=== PATIENT | female | born 1980 | race Caucasian/White ===

== ENCOUNTER → 2017-01-18 | Outpatient (CLI) | payer MEDICARE ==
--- NOTE | 2017-01-18 09:02 | CT ---
EXAMINATION TYPE: CT abdomen pelvis wo con DATE OF EXAM: 01/18/2017 8:08 AM COMPARISON: NONE HISTORY: 36-year-old female Abdominal pain, frequent urination. Calculus of kidney. CT DLP: 721 mGycm. Automated exposure control for dose reduction was used. TECHNIQUE: Contiguous axial scanning of the abdomen and pelvis without IV contrast. Coronal and sagit rocky reconstructions performed. FINDINGS: The heart is normal size without pericardial effusion. Lung bases clear without pleural effusion. Noncontrast appearance of the liver, gallbladder, adrenal glands, kidneys, spleen, and pancreas show no gross abnormality. No renal calculus or hydronephrosis. There is prominent distention of the stomach secondary to ingested debris No dilated small bowel, free fluid, or free air. Prominent fluid-filled small bowel loops are present in the mid and lower abdomen and pelvis. Some inspissated hyperdense material is noted within a norm al caliber appendix. Some liquid stool is present in the ascending colon with otherwise mild to moder ate overall stool burden. No pericolonic inflammatory change. No mesenteric or retroperitoneal lymphadenopathy. Bladder is urine distended. There may be very mild circumferential bladder wall thickening. No abnorm al fluid collection in the pelvis or pelvic lymphadenopathy. Bones: No osseous destructive process. IMPRESSION: 1. Prominent fluid-filled small bowel loops in the lower abdomen and pelvis with some liquid stool in the ascending colon. Correlate for any symptoms of enteritis. 2. There may be slight circumferential wall thickening of the bladder. Correlate to exclude cystitis, especially given patient's symptoms. No nephrolithiasis or hydronephrosis. 3. Incidental note of prominent ingested debris distending the stomach.
== END | disposition home or self-care (01) ==
LOC: RADCTMAIN 07:47
PROVIDERS: ATTEND Family Medicine
DX: R93.8 Abnormal findings on diagnostic imaging of other specified body structures (principal)
CPT/HCPCS: 74176

== ENCOUNTER 2017-01-21 15:08 | Emergency (ER) | payer MEDICARE ==
[2017-01-21 16:09] LABS: Appearance,Urine Clear (Clear); Bilirubin,Urine Negative (Negative); Glucose,Urine (UA) Negative (Negative); Ketones,Urine Negative (Negative); Leukocyte Esterase,Urine Negative (Negative); Nitrite,Urine Negative (Negative); Protein,Urine Negative (Negative); UA Billing (MACRO vs. MICRO) CHEM; Urobilinogen,Urine <2.0 mg/dL (<2.0)
--- NOTE | 2017-01-21 16:10 | ED ---
Abdominal Pain HPI - General Chief Complaint: Abdominal Pain Stated Complaint: Abd Pain Time Seen by Provider: 01/21/17 15:37 Source: patient, RN notes reviewed Mode of arrival: ambulatory Limitations: no limitations - History of Present Illness Initial Comments: Patient is a 36-year-old female presents to the emergency room for evaluation of right-sided abdominal discomfort. Patient states she began having pain about 2 and half weeks ago. Patient states she went to her primary care provider they performed ultrasound of her kidneys. Patient states they found a kidney stone. Patient states that she was continuing to have pain so she went to another provider at [facility]. Patient states that she was placed on Flomax and was ordered a CT. Patient states she was CT of her abdomen and pelvis was about 2 days ago. Patient states she has not received the results. Patient states today she was feeling very weak. Patient states she is still having right sided abdominal discomfort. Patient states it feels full. Patient denies pain or burning during urination.Patient states that having on and off diarrhea for the past few weeks. Patient states she began with diarrhea again today. Patient denies blood in the stools. Patient denies dark tarry stools. Patient states been nauseous but denies vomiting. Patient states she has a history of a hysterectomy. - Related Data Home Medications Medication Instructions Recorded Confirmed DULoxetine HCL [Cymbalta] 60 mg PO DAILY 01/21/17 01/21/17 Diazepam [Valium] 5 mg PO TID PRN 01/21/17 01/21/17 Diazepam [Valium] 10 mg PO TID PRN 01/21/17 01/21/17 Spironolactone [Aldactone] 25 mg PO DAILY 01/21/17 01/21/17 Previous Rx's Medication Instructions Recorded Dicyclomine [Bentyl] 10 mg PO TID PRN #12 capsule 01/21/17 Allergies Allergy/AdvReac Type Severity Reaction Status Date / Time codeine Allergy Unknown Verified 01/21/17 15:27 Childhood Sulfa (Sulfonamide Allergy Rash/Hives Verified 01/21/17 15:27 Antibiotics) tamsulosin [From Flomax] Allergy Dyspnea Verified 01/21/17 15:27 Review of Systems ROS Statement: Those systems with pertinent positive or pertinent negative responses have been documented in the HPI. ROS Other: All systems not noted in ROS Statement are negative. Past Medical History Past Medical History: No Reported History History of Any Multi-Drug Resistant Organisms: None Reported Past Surgical History: Hysterectomy Past Psychological History: Anxiety Smoking Status: Current every day smoker Past Alcohol Use History: Occasional Past Drug Use History: None Reported General Exam - General Exam Comments Initial Comments: sitting in exam room, no acute distress. Limitations: no limitations General appearance: alert, in no apparent distress Head exam: Present: atraumatic, normocephalic, normal inspection Eye exam: Present: normal appearance ENT exam: Present: normal exam Neck exam: Present: normal inspection Respiratory exam: Present: normal lung sounds bilaterally. Absent: respiratory distress Cardiovascular Exam: Present: regular rate, normal rhythm, normal heart sounds GI/Abdominal exam: Present: soft, tenderness (right lower quadrant), normal bowel sounds. Absent: distended, guarding, rebound, rigid Extremities exam: Present: normal inspection Back exam: Present: normal inspection Neurological exam: Present: alert, oriented X3, CN II-XII intact, normal gait Psychiatric exam: Present: normal affect, normal mood Skin exam: Present: warm, dry, intact, normal color. Absent: rash Course Vital Signs 01/21/17 01/21/17 15:11 17:08 Temperature 97.7 F 98.6 F Pulse Rate 90 74 Respiratory 18 16 Rate Blood Pressure 132/81 114/67 O2 Sat by Pulse 100 99 Oximetry Medical Decision Making - Medical Decision Making patient is a 36-year-old female since emergency room for evaluation of abdominal discomfort. CT reviewed. Prominent fluid-filled small bowel loops in the lower abdomen and pelvis was some liquid stool in the ascending colon. Correlate for symptoms of enteritis. There may be slight circumferential wall thickening of the bladder. patient denies any pain or burning during urination. Will place patient on Bentyl for abdominal discomfort. Advised patient to follow up with primary care provider for further evaluation. Patient states she understands everything that was discussed with her. Return parameters discussed. Case discussed with Dr. Lara. - Lab Data Result diagrams: 01/21/17 15:50 01/21/17 15:50 Lab Results 01/21/17 01/21/17 01/21/17 Range/Units 15:41 15:41 15:50 WBC (3.8-10.6) k/uL RBC (3.80-5.40) m/uL Hgb (11.4-16.0) gm/dL Hct (34.0-46.0) % MCV (80.0-100.0) fL MCH (25.0-35.0) pg MCHC (31.0-37.0) g/dL RDW (11.5-15.5) % Plt Count (150-450) k/uL Neutrophils % % Lymphocytes % % Monocytes % % Eosinophils % % Basophils % % Neutrophils # (1.3-7.7) k/uL Lymphocytes # (1.0-4.8) k/uL Monocytes # (0-1.0) k/uL Eosinophils # (0-0.7) k/uL Basophils # (0-0.2) k/uL Sodium 139 (137-145) mmol/L Potassium 4.2 (3.5-5.1) mmol/L Chloride 102 (98-107) mmol/L Carbon Dioxide 28 (22-30) mmol/L Anion Gap 9 mmol/L BUN 11 (7-17) mg/dL Creatinine 0.85 (0.52-1.04) mg/dL Est GFR (MDRD) Af Amer >60 (>60 ml/min/1.73 sqM) Est GFR (MDRD) Non-Af >60 (>60 ml/min/1.73 sqM) Glucose 83 (74-99) mg/dL Calcium 10.0 (8.4-10.2) mg/dL Magnesium 2.2 (1.6-2.3) mg/dL Total Bilirubin 0.5 (0.2-1.3) mg/dL AST 20 (14-36) U/L ALT 24 (9-52) U/L Alkaline Phosphatase 60 (38-126) U/L Total Protein 7.6 (6.3-8.2) g/dL Albumin 4.7 (3.5-5.0) g/dL Amylase 56 (30-110) U/L Lipase 115 (23-300) U/L Urine Color Colorless Urine Appearance Clear (Clear) Urine pH 7.0 (5.0-8.0) Ur Specific [place] <1.001 L (1.001-1.035) Urine Protein Negative (Negative) Urine Glucose (UA) Negative (Negative) Urine Ketones Negative (Negative) Urine Blood Negative (Negative) Urine Nitrite Negative (Negative) Urine Bilirubin Negative (Negative) Urine Urobilinogen <2.0 (<2.0) mg/dL Ur Leukocyte Esterase Negative (Negative) Urine HCG, Qual Not Detected (Not Detectd) 01/21/17 Range/Units 15:50 WBC 8.6 (3.8-10.6) k/uL RBC 4.76 (3.80-5.40) m/uL Hgb 14.2 (11.4-16.0) gm/dL Hct 43.6 (34.0-46.0) % MCV 91.5 (80.0-100.0) fL MCH 29.9 (25.0-35.0) pg MCHC 32.7 (31.0-37.0) g/dL RDW 12.3 (11.5-15.5) % Plt Count 309 (150-450) k/uL Neutrophils % 68 % Lymphocytes % 23 % Monocytes % 6 % Eosinophils % 1 % Basophils % 0 % Neutrophils # 5.8 (1.3-7.7) k/uL Lymphocytes # 2.0 (1.0-4.8) k/uL Monocytes # 0.5 (0-1.0) k/uL Eosinophils # 0.1 (0-0.7) k/uL Basophils # 0.0 (0-0.2) k/uL Sodium (137-145) mmol/L Potassium (3.5-5.1) mmol/L Chloride (98-107) mmol/L Carbon Dioxide (22-30) mmol/L Anion Gap mmol/L BUN (7-17) mg/dL Creatinine (0.52-1.04) mg/dL Est GFR (MDRD) Af Amer (>60 ml/min/1.73 sqM) Est GFR (MDRD) Non-Af (>60 ml/min/1.73 sqM) Glucose (74-99) mg/dL Calcium (8.4-10.2) mg/dL Magnesium (1.6-2.3) mg/dL Total Bilirubin (0.2-1.3) mg/dL AST (14-36) U/L ALT (9-52) U/L Alkaline Phosphatase (38-126) U/L Total Protein (6.3-8.2) g/dL Albumin (3.5-5.0) g/dL Amylase (30-110) U/L Lipase (23-300) U/L Urine Color Urine Appearance (Clear) Urine pH (5.0-8.0) Ur Specific [place] (1.001-1.035) Urine Protein (Negative) Urine Glucose (UA) (Negative) Urine Ketones (Negative) Urine Blood (Negative) Urine Nitrite (Negative) Urine Bilirubin (Negative) Urine Urobilinogen (<2.0) mg/dL Ur Leukocyte Esterase (Negative) Urine HCG, Qual (Not Detectd) - Radiology Data Radiology results: report reviewed, image reviewed Disposition Clinical Impression: Abdominal discomfort, Diarrhea Disposition: HOME SELF-CARE Condition: Good Instructions: Acute Diarrhea (ED) Additional Instructions: Take Bentyl as needed for pain. Please follow up with primary care provider in 1 -2 days for reevaluation. If any new symptom arises or symptoms worsen, return to ER as soon as possible. Prescriptions: Dicyclomine [Bentyl] 10 mg PO TID PRN #12 capsule PRN Reason: Pain Referrals: Willie Mccullough MD [Primary Care Provider] - 1-2 days Time of Disposition: 17:29
[2017-01-21 16:17] LABS: Specific Gravity,Urine <1.001 (1.001-1.035)
[2017-01-21 16:21] LABS: Basophils % (A) 0 %; CH 30.1; Eosinophils # (A) 0.1 k/uL (0-0.7); Eosinophils % (A) 1 %; HCT 43.6 % (34.0-46.0); HDW 2.04; HGB 14.2 gm/dL (11.4-16.0); Luc # (Auto) 0.14; Luc % (Auto) 2; Lymphocytes % (A) 23 %; MCH 29.9 pg (25.0-35.0); MCHC 32.7 g/dL (31.0-37.0); MCV 91.5 fL (80.0-100.0); Mean Platelet Volume 7.1; Monocytes # (A) 0.5 k/uL (0-1.0); Monocytes % (A) 6 %; Neutrophils # (A) 5.8 k/uL (1.3-7.7); Neutrophils % (A) 68 %; RBC 4.76 m/uL (3.80-5.40); RDW 12.3 % (11.5-15.5); WBC 8.6 k/uL (3.8-10.6); WBC (Perox) 8.48
[2017-01-21 16:40] LABS: ALT 24 U/L (9-52); AST 20 U/L (14-36); Alkaline Phosphatase 60 U/L (38-126); Amylase 56 U/L (30-110); Anion Gap 9 mmol/L; Blood Urea Nitrogen 11 mg/dL (7-17); Carbon Dioxide 28 mmol/L (22-30); Chloride 102 mmol/L (98-107); Glucose 83 mg/dL (74-99); Magnesium 2.2 mg/dL (1.6-2.3); Non-African American GFR(MDRD) >60 (>60 ml/min/1.73 sqM); Potassium 4.2 mmol/L (3.5-5.1); Sodium 139 mmol/L (137-145); Total Bilirubin 0.5 mg/dL (0.2-1.3); Total Protein 7.6 g/dL (6.3-8.2)
[2017-01-21] MEDS ORDERED: ONDANSETRON 4 MG/2 ML VIAL IVP STA (17:08)
[2017-01-21 17:09] VITALS: BP 114/67; PULSE 74; RESP 16; TEMP 98.6
[2017-01-21] MEDS ORDERED: SODIUM CHLORIDE 0.9% 1,000 ML IV ONE (17:09)
== END 2017-01-21 17:45 | disposition home or self-care (01) ==
LOC: EC 15:08
DX: R10.9 Unspecified abdominal pain (principal); R19.7 Diarrhea, unspecified; R11.0 Nausea; Z88.5 Allergy status to narcotic agent; Z88.2 Allergy status to sulfonamides; Z88.8 Allergy status to other drugs, medicaments and biological substances; F41.9 Anxiety disorder, unspecified; F17.200 Nicotine dependence, unspecified, uncomplicated; Z79.899 Other long term (current) drug therapy
CPT/HCPCS: 99284; 96374; 96361; 36415; 80053; 82150; 83690; 83735; 85025; 81003; 81025; J2405

== ENCOUNTER → 2018-03-12 | Outpatient (CLI) | payer MEDICARE ==
--- NOTE | 2018-03-12 08:11 | US ---
EXAMINATION TYPE: US abdomen comp/pelvis limited DATE OF EXAM: 03/12/2018 COMPARISON: CT 01/18/2017 CLINICAL HISTORY: 37-year-old female R10.11 Right upper quad pain. TECHNIQUE: Multiple sonographic images of the abdomen and bladder obtained. Findings EXAM MEASUREMENTS: Liver Length: 16.1 cm Gallbladder Wall: 0.2 cm CBD: 0.3 cm Spleen: 8.5 cm Right Kidney: 10.8 x 3.6 x 4.8 cm Left Kidney: 10.5 x 4.9 x 5.2 cm Pancreas: Visualized portions within normal limits, the tip of the pancreatic tail is obscured by [place] wel gas. Liver: wnl Gallbladder: wnl CBD: wnl Spleen: wnl Right Kidney: No hydronephrosis. Left Kidney: No hydronephrosis. Upper IVC: wnl Abd Aorta: wnl as visualized, distal portion obscured by bowel gas Bladder: no gross abnormality Bilateral Jets Seen Yes Incidental finding: Either a dominant follicle or functional cyst measuring 1.4 cm and the left ovary . IMPRESSION: Unremarkable sonographic examination of the abdomen. The bladder appears within normal limits. Both u reteral jets are visualized.
== END | disposition home or self-care (01) ==
LOC: RADUSWWP 06:45
PROVIDERS: ATTEND Family Medicine
DX: R10.11 Right upper quadrant pain (principal)
CPT/HCPCS: 76700; 76857

== ENCOUNTER → 2019-05-16 | Outpatient (CLI) | payer MEDICARE ==
--- NOTE | 2019-05-17 04:44 | NM ---
EXAMINATION TYPE: NM hepatobiliary w EF DATE OF EXAM: 05/16/2019 COMPARISON: Correlation ultrasound 03/12/2018 HISTORY: 38 year-old female right upper quadrant pain TECHNIQUE: After the intravenous administration of 4.4 mCi Tc 99m Mebrofenin hepatobiliary scintigrap hy is performed. Immediate images post injection. FINDINGS: There is satisfactory initial accumulation of tracer by the liver. The gallbladder is visualized wit hin 2 minutes. The small bowel activity is noted within 14 minutes. At one hour 8 ounces of oral en sure plus is given to mimic CCK and gallbladder ejection fraction is calculated at 96 %, elevated abo ve the expected range (normal = 35-80). IMPRESSION: 1. No scintigraphic evidence for acute/chronic cholecystitis or biliary dyskinesia. 2. However, the gallbladder ejection fraction is markedly elevated and may be seen in the setting of gallbladder hyperkinesis.
== END | disposition home or self-care (01) ==
LOC: RADNMMAIN 14:18
PROVIDERS: ATTEND Family Medicine
DX: R93.2 Abnormal findings on diagnostic imaging of liver and biliary tract (principal); R10.11 Right upper quadrant pain
CPT/HCPCS: 78226; A9537

== ENCOUNTER → 2020-10-12 | Outpatient (CLI) | payer MEDICARE ==
--- NOTE | 2020-10-12 13:17 | CT ---
EXAMINATION TYPE: CT abdomen pelvis wo con DATE OF EXAM: 10/12/2020 HISTORY: Renal stones CT DLP: 467.10 mGycm. Automated Exposure Control for Dose Reduction was Utilized. TECHNIQUE: CT scan of the abdomen and pelvis is performed without oral or IV contrast. COMPARISON: CT abdomen and pelvis January 18, 2017 FINDINGS: Within the limitations of a non-contrast study, the following observations are made. LUNG BASES: No significant abnormality is appreciated. LIVER/GB: No significant abnormality is appreciated. PANCREAS: No significant abnormality is seen. SPLEEN: No significant abnormality is seen. ADRENALS: No significant abnormality is seen. KIDNEYS: No renal stones or hydronephrosis seen on current study. Slight fullness to right pelvis wit hout calyceal dilatation or distal hydroureter. No intraluminal calculus in bladder. BOWEL: Suboptimal evaluation bowel without enteric contrast. Debris filled stomach suggests recent me al ingestion. Appendix is not dilated from base of cecum posterior right upper pelvis. No suspicious small or large bowel dilatation. GENITAL ORGANS: Uterus surgically absent or markedly atrophic. LYMPH NODES: No greater than 1cm abdominal or pelvic lymph nodes are appreciated. OSSEOUS STRUCTURES: No significant abnormality is seen. OTHER: No significant additional abnormality is seen. IMPRESSION: No renal stones or hydronephrosis is seen bilaterally. No suspicious new or acute finding .
== END | disposition home or self-care (01) ==
LOC: RADCTMAIN 12:36
PROVIDERS: ATTEND Family Medicine
DX: Z09 Encounter for follow-up examination after completed treatment for conditions other than malignant neoplasm (principal); Z87.442 Personal history of urinary calculi
CPT/HCPCS: 74176

== ENCOUNTER → 2021-09-23 | Outpatient (CLI) | payer MEDICARE ==
[2021-09-23 14:42] LABS: Basophils # (A) 0.1 k/uL (0-0.2); Basophils % (A) 1 %; Eosinophils # (A) 0.1 k/uL (0-0.7); Eosinophils % (A) 1 %; HCT 45.9 % (34.0-46.0); HGB 14.7 gm/dL (11.4-16.0); Lymphocytes % (A) 30 %; MCH 29.3 pg (25.0-35.0); MCHC 31.9 g/dL (31.0-37.0); MCV 91.8 fL (80.0-100.0); Mean Platelet Volume 7.6; Monocytes # (A) 0.6 k/uL (0-1.0); Monocytes % (A) 6 %; Neutrophils # (A) 6.3 k/uL (1.3-7.7); Neutrophils % (A) 62 %; Platelet Count 367 k/uL (150-450); RBC 5.01 m/uL (3.80-5.40); RDW 12.3 % (11.5-15.5); WBC 10.1 k/uL (3.8-10.6)
[2021-09-23 14:53] LABS: ALT 18 U/L (4-34); AST 22 U/L (14-36); African American GFR (CKD) >90 (>60 ml/min/1.73 sqM); Albumin 4.9 g/dL (3.5-5.0); Alkaline Phosphatase 69 U/L (38-126); Anion Gap 10 mmol/L; Blood Urea Nitrogen 10 mg/dL (7-17); Calcium 10.2 mg/dL (8.4-10.2); Carbon Dioxide 24 mmol/L (22-30); Chloride 104 mmol/L (98-107); Glucose 102 mg/dL (74-99); Non-African American GFR(CKD) >90 (>60 ml/min/1.73 sqM); Sodium 138 mmol/L (137-145); Total Bilirubin 0.6 mg/dL (0.2-1.3); Total Protein 7.6 g/dL (6.3-8.2)
[2021-09-23 16:28] LABS: Erythrocyte Sedimentation Rate 8 mm/hr (0-20)
[2021-09-24 05:06] LABS: EBV-EA (IgG) <0.2 AI; EBV-EBNA(IgG) >8.0 AI; EBV-VCA (IgG) 7.8 AI; EBV-VCA (IgM) <0.2 AI
--- NOTE | 2021-09-24 08:34 | CT ---
EXAMINATION TYPE: CT abdomen pelvis w con DATE OF EXAM: 09/23/2021 HISTORY: Pyrexia of unknown origin x2 weeks. Abdominal discomfort all over CT DLP: 895mGycm Automated Exposure Control for Dose Reduction was Utilized. CONTRAST: CT scan of the abdomen and pelvis is performed with IV Contrast, patient injected with 100 mL of Isov ue 300. COMPARISON: Prior CT October 12, 2020 FINDINGS: LUNG BASES: No significant abnormality is appreciated. LIVER/GB: Suspected prominent fold in gallbladder axial image 22 as the 2018 ultrasound did not show distinct gallstones. No surrounding fat stranding or inflammatory change noted. No biliary dilatation . PANCREAS: No significant abnormality is seen. SPLEEN: No significant abnormality is seen. ADRENALS: No significant abnormality is seen. KIDNEYS: No significant abnormality is seen. BOWEL: Oral contrast reaches the level of the right colon on current study. No suspicious small or la rge bowel dilatation is seen. Slightly redundant sigmoid colon. Normal-appearing appendix from cecum. UTERUS/ADNEXA: Uterus is surgically absent or markedly atrophic. LYMPH NODES: No greater than 1cm abdominal or pelvic lymph nodes are appreciated. OSSEOUS STRUCTURES: No significant abnormality is seen. OTHER: No significant additional abnormality is seen. IMPRESSION: No significant new or acute finding is seen to account for patient's clinical symptoms.
== END | disposition home or self-care (01) ==
LOC: RADCTMAIN 15:03
PROVIDERS: ATTEND Family Medicine
DX: R50.9 Fever, unspecified (principal)
CPT/HCPCS: 86665 ×2; 80053; 85652; 86663; 83605; 85025; 86140; 87040; 86664; 87086; 74177; 36415; Q9967

== ENCOUNTER → 2021-09-24 | Outpatient (CLI) | payer MEDICARE ==
--- NOTE | 2021-09-24 15:24 | US ---
EXAMINATION TYPE: US gallbladder DATE OF EXAM: 09/24/2021 COMPARISON: CT, US CLINICAL HISTORY: R50.9 FEVER. Low grade fever and night sweats x 2 weeks; RUQ pain; HX of renal infe ctions; patient ate peanut butter sandwich at noon today. EXAM MEASUREMENTS: Liver Length: 17.3 cm Gallbladder Wall: 0.1 cm CBD: 0.4 cm Right Kidney: 9.9 x 6.1 x 4.1 cm Pancreas: hyperechoic but homogeneous Liver: wnl Gallbladder: wnl Evidence for sonographic Min's sign: no CBD: wnl Right Kidney: No hydronephrosis or masses seen IMPRESSION: 1. Mild hepatomegaly.
== END | disposition home or self-care (01) ==
LOC: RADUSWWP 14:33
PROVIDERS: ATTEND Family Medicine
DX: R16.0 Hepatomegaly, not elsewhere classified (principal)
CPT/HCPCS: 76705

== ENCOUNTER → 2022-09-26 | Outpatient (CLI) | payer MEDICARE ==
--- NOTE | 2022-09-26 09:55 | US ---
EXAMINATION TYPE: US abdomen complete DATE OF EXAM: 09/26/2022 COMPARISON: Ultrasound gallbladder 09/24/2021 CLINICAL HISTORY: R10.10 ABD PAIN. RUQ pain TECHNIQUE: Multiple sonographic images of the abdomen are obtained. FINDINGS: EXAM MEASUREMENTS: Liver Length: 17.2 cm Gallbladder Wall: 0.3 cm CBD: 0.3 cm Spleen: 9.8 cm Right Kidney: 10.0 x 5.1 x 4.3 cm Left Kidney: 9.9 x 4.3 x 4.8 cm Pancreas: Tail obscured by overlying bowel gas Liver: wnl Gallbladder: no evidence of stones Evidence for sonographic Min's sign: no CBD: wnl Spleen: wnl Right Kidney: no evidence of hydronephrosis Left Kidney: no evidence of hydronephrosis Upper IVC: wnl Abd Aorta: wnl The liver is homogenous. Mild hepatomegaly redemonstrated. The intrahepatic portion of the IVC and pr oximal abdominal aorta are within normal limits. There is no evidence of cholelithiasis. Common caty e duct is unremarkable. The visualized portions of the pancreas are homogenous. The spleen is unrem arkable. Kidneys are symmetric and free of hydronephrosis. No renal lesions are seen. IMPRESSION: 1. No acute process. 2. Mild hepatomegaly redemonstrated.
== END | disposition home or self-care (01) ==
LOC: RADUSWWP 08:42
PROVIDERS: ATTEND Family Medicine
DX: R16.0 Hepatomegaly, not elsewhere classified (principal)
CPT/HCPCS: 76700

== ENCOUNTER → 2022-10-04 | Outpatient (CLI) | payer MEDICARE ==
--- NOTE | 2022-10-04 15:25 | NM ---
EXAMINATION TYPE: NM hepatobiliary w EF DATE OF EXAM: 10/04/2022 COMPARISON: NONE HISTORY: R10.10 UPPER ABDOMINAL PAIN, UNSPECIFIED TECHNIQUE: After the intravenous administration of 4.1 mCi Tc 99m Mebrofenin hepatobiliary scintigrap hy is performed. Immediate images post injection. FINDINGS: There is satisfactory initial accumulation of tracer by the liver. The gallbladder is visualized wit hin 15 minutes. The small bowel activity is noted within 15 minutes. At one hour 8 ounces of oral e nsure plus is given to mimic CCK and gallbladder ejection fraction is calculated at 94%. IMPRESSION: Correlate for hypercontractile state.
== END | disposition home or self-care (01) ==
LOC: RADNMMAIN 12:33
PROVIDERS: ATTEND Family Medicine
DX: R10.10 Upper abdominal pain, unspecified (principal)
CPT/HCPCS: 78226; A9537

== ENCOUNTER → 2024-07-18 | Outpatient (CLI) | payer MEDICARE ==
--- NOTE | 2024-07-18 17:18 | CA ---
Transthoracic Echo Report Name: Jasmyne Toussaint Age: 44 Gender: F : 1980 Exam Date: 07/18/2024 15:37 Exam Location: [facility] Ht (in): 63 Wt (lb): 170 Ordering Physician: Rema Rouse MD Attending/Referring Phys: Rema Rouse MD Welder Fitter Helper Darya Frye, [facility] Procedure CPT: Indications: R00.2 PALPITATIONS R01.1 CARDIAC MURMUR Cardiac Hx: Technical Quality: Good Contrast 1: Total Dose (mL): Contrast 2: Total Dose (mL): MEASUREMENTS (Male / Female) Normal Values 2D ECHO LV Diastolic Diameter PLAX 4.5 cm 4.2 - 5.9 / 3.9 - 5.3 cm LV Systolic Diameter PLAX 3.1 cm IVS Diastolic Thickness 1.1 cm 0.6 - 1.0 / 0.6 - 0.9 cm LVPW Diastolic Thickness 1.0 cm 0.6 - 1.0 / 0.6 - 0.9 cm LV Relative Wall Thickness 0.5 RV Internal Dim ED PLAX 2.9 cm LA Systolic Diameter LX 3.3 cm 3.0 - 4.0 / 2.7 - 3.8 cm LV Diastolic Volume MOD 4C 94.3 cm??? LV Systolic Volume MOD 4C 38.1 cm??? LV Ejection Fraction MOD 4C 59.6 % LV Cardiac Index MOD 4C 1885.8 cm???/min???m??? LV Diastolic Length 4C 8.8 cm LV Systolic Length 4C 7.0 cm LV Diastolic Volume MOD 2C 71.1 cm??? LV Systolic Volume MOD 2C 24.9 cm??? LV Ejection Fraction MOD 2C 65.1 % LV Cardiac Index MOD 2C 1552.6 cm???/min???m??? LV Diastolic Length 2C 8.6 cm LV Systolic Length 2C 7.1 cm M-MODE Aortic Root Diameter MM 2.9 cm LA Systolic Diameter MM 2.2 cm LA Ao Ratio MM 0.7 DOPPLER AV Peak Velocity 131.5 cm/s AV Peak Gradient 6.9 mmHg Mitral E Point Velocity 85.3 cm/s Mitral A Point Velocity 40.0 cm/s Mitral E to A Ratio 2.1 MV Deceleration Time 343.2 ms MV E' Velocity 10.5 cm/s Mitral E to MV E' Ratio 8.1 FINDINGS Left Ventricle Left ventricular ejection fraction is estimated at 60-65 %. Left ventricular cavity size normal. Mildly increased septal wall thickness. Mildly increased posterior wall thickness. Normal left ventricular wall motion. Right Ventricle Normal right ventricular size and function. Unable to estimate the right ventricular systolic pressure. Right Atrium Normal right atrial size. No right atrial thrombus or mass seen. Left Atrium Normal left atrial size. No spontaneous echo contrast seen in the left atrium. Mitral Valve Structurally normal mitral valve. No evidence for mitral valve prolapse. No mitral stenosis. Trace mitral regurgitation. Aortic Valve Trileaflet aortic valve. No aortic valve stenosis or regurgitation. Tricuspid Valve Structurally normal tricuspid valve. No tricuspid stenosis, regurgitation or prolapse. Pulmonic Valve Structurally normal pulmonic valve. No pulmonic regurgitation. Pericardium No pericardial or pleural effusion. Aorta Normal size aortic root and proximal ascending aorta. CONCLUSIONS Normal LV systolic function Previewed by: Dr. Torres Obrien MD (Electronically Signed) Final Date: 18 July 2024 17:17
== END | disposition home or self-care (01) ==
LOC: RADECHMAIN 15:23
PROVIDERS: ATTEND Family Medicine
DX: R00.2 Palpitations (principal); R01.1 Cardiac murmur, unspecified
CPT/HCPCS: 93306

== ENCOUNTER → 2024-11-22 | Outpatient (CLI) | payer MEDICARE ==
--- NOTE | 2024-11-22 13:31 | MM ---
Reason for Exam: Clinical finding. Baseline mammogram. Indicated Problems: Lump or thickening of the right side for 2 Week(s). Patient History: Menarche at age 13. Patient has no children. Hysterectomy at age 31. Last menstrual period: Risk Values: Trina 5 year model risk: 0.8%. NCI Lifetime model risk: 10.8%. Prior Study Comparison: Patient's first Mammogram. No prior studies available for comparison. Tissue Density: The breasts are extremely dense, which lowers the sensitivity of mammography. Findings: Analyzed By CAD. No evidence for mass or distortion. No suspicious microcalcifications. Ultrasound recommended for palpable abnormality. Overall Assessment: Incomplete: need additional imaging evaluation, BI-RAD 0 Management: Diagnostic Breast Ultrasound of the right breast. . Results were given to the patient verbally at the time of exam. Patient should continue monthly self-breast exams. A clinical breast exam by your physician is recommended on an annual basis. This exam should not preclude additional follow-up of suspicious palpable abnormalities. Note on Trina scores and lifetime risk: 1. A Trina score greater than 3% is considered moderate risk. If this is the case, consider specialist referral to assess eligibility for a risk reducing agent. 2. If overall lifetime risk for the development of breast cancer is 20% or higher, the patient may qualify for future screening with alternating mammogram and breast MRI. [facility], , 11/22/2024 1:28 PM. Electronically signed and approved by: David Owens M.D. Radiologis
--- NOTE | 2024-11-22 13:57 | USB ---
Reason for Exam: Clinical finding. Patient History: Menarche at age 13. Patient has no children. Hysterectomy at age 31. Risk Values: Trina 5 year model risk: 0.8%. NCI Lifetime model risk: 10.8%. Technique: Method: Targeted. Findings: The lower section of the breast of the right breast, the axilla of the right breast and the retroareolar of the right breast were scanned. No solid or cystic masses are identified. Correlate clinically with regards to palpable abnormality. Overall Assessment: Negative, BI-RAD 1 Management: Screening Mammogram of both breasts in 1 year. A clinical breast exam by your physician is recommended on an annual basis and results should be correlated with mammographic findings. This exam should not preclude additional follow-up of suspicious palpable abnormalities. Results were given to the patient verbally at the time of exam. [facility], , 11/22/2024 1:54 PM. Electronically signed and approved by: David Owens M.D. Radiologis
== END | disposition home or self-care (01) ==
LOC: RADMAMWWP 13:01
PROVIDERS: ATTEND Internal Medicine Geriatric Medicine
DX: N63.14 Unspecified lump in the right breast, lower inner quadrant (principal); R92.343 Mammographic extreme density, bilateral breasts
CPT/HCPCS: 77066; 76642; G0279; 77062

== ENCOUNTER → 2025-01-29 | Outpatient (CLI) | payer MEDICARE ==
[2025-01-29 14:23] VITALS: BP 104/68; PULSE 64; RESP 12; TEMP 98.3
--- NOTE | 2025-01-29 14:54 | P.SLEEP ---
History of Present Illness DATE: 01/29/2025 CONSULTATION/NEW PATIENT EVALUATION HISTORY OF PRESENT ILLNESS/SLEEP-WAKE EVALUATION: 44-year-old lady had been e valuated in the sleep center for possible obstructive sleep apnea hypopnea syndrome. SLEEP SCHEDULE: Usually sleep schedule from midnight until 8 AM 7 days a week. FALLING ASLEEP: No problems with falling asleep. DURING SLEEP: Patient snores and wake up from sleep once to use the restroom grinding teeth and palpitations during sleep her Fitbit showed low oxygen during sleep. Positive history of sleep talking, raising arm during the sleep. No history of hypnogogical hallucinations, sleep paralysis, or cataplexy. DURING THE DAY/WAKE STATE: In the morning patient wake up tired, has difficul ties to pay attention, has problems with concentration, irritability, depression, anxiety, claustrophobia. [place] sleepiness scale is 7. Patient takes nap around 2 PM. PAST MEDICAL HISTORY: Atrial fibrillation, acid reflux. PAST SURGICAL HISTORY: Partial hysterectomy. MEDICATIONS: Please see below. SOCIAL HISTORY: Please see below. FAMILY HISTORY: Please see below. REVIEW OF SYSTEMS: Please see below. No fevers. No double vision. No recent chest pain. No shortness of breath. No abdominal pain. No bleeding episodes. No blood in urine. No seizure episodes. PHYSICAL EXAMINATION: GENERAL: A pleasant patient without any distress. VITAL SIGNS: Please see below, weight 182.6 pounds, BMI 30.7. HEENT: PERRLA, EOMI. Evaluation of oropharynx showed tongue protrudes midline, low position of soft palate Mallampati 23. NECK: Supple. No JVD. Thyroid is not palpable. 14.5 inches in circumference. LUNGS: Clear to percussion and to auscultation. Good air exchange. No wheezing or rhonchi. HEART: S1, S2 regular. No murmurs, gallops or rubs. ABDOMEN: Soft and nontender. Bowel sounds are present. No organomegaly appreciated. EXTREMITIES: No clubbing or cyanosis. RN PROGRESSIVE CARE UNIT: Awake, alert, and oriented x3. Cranial nerves 2 to 7 intact. There is no fasciculation or atrophy noted. No focal deficits observed. ASSESSMENT: 1. Snoring, small oropharyngeal airspace, episodes of sleepiness patient takes nap. Obstructive sleep apnea hypopnea syndrome. 2. History of atrial fibrillation. 3. Acid reflux. 4. Status post partial hysterectomy. 5. Arm movements during sleep, possibly out of the movements. 6 . Positive history of sleep talking. 7. Mild obesity, BMI 30.7 PLAN: 1. Polysomnography for evaluation of patient's breathing during sleep and to check for possibility of parasomnia. 2. Following plan after reading sleep study. 3. Preferable position during sleep on the side. 4. No driving if patient feels any sleepiness. Patient is aware of civil and criminal liability for unsafe driving. 5. Sleep hygiene with regular sleep time for at least 7.5-8 hours. 6. Watching weight. Thank you very much for referring this patient for consultation. Sincerely, Pete Escobar MD, PhD, FAASM. Diplomat of [employer] [place] [employer], Sleep Medicine Board by [employer] [place] [place] [employer] Nurse Private Duty of [facility] [place] cc: Poncho Sainz MD Past Medical History Past Medical History: Atrial Fibrillation Additional Past Medical History / Comment(s): cervial radicalopothy History of Any Multi-Drug Resistant Organisms: None Reported Past Surgical History: Hysterectomy Additional Past Surgical History / Comment(s): hysterectomy Past Anesthesia/Blood Transfusion Reactions: No Reported Reaction, Motion Sickness Past Psychological History: Anxiety, Depression, PTSD Smoking Status: Current every day smoker Past Alcohol Use History: None Reported, Occasional Past Drug Use History: None Reported Medications and Allergies Home Medications Medication Instructions Recorded Confirmed Type DULoxetine HCL [Cymbalta] 60 mg PO DAILY 01/21/17 01/29/25 History diazePAM [Valium] 5 mg PO TID PRN 01/21/17 01/29/25 History Fluticasone Nasal [place] [Flonase 2 spray EA NOSTRIL DAILY 01/29/25 01/29/25 History Nasal [place]] Loratadine [Claritin] 10 mg PO DAILY 01/29/25 01/29/25 History Metoprolol Tartrate [Lopressor] 50 mg PO BID 01/29/25 01/29/25 History Olopatadine HCl [Pataday] 1 drop BOTH EYES 01/29/25 History Omeprazole 40 mg PO 01/29/25 History Allergies Allergy/AdvReac Type Severity Reaction Status Date / Time codeine Allergy Unknown Verified 01/21/17 15:27 Childhood Sulfa (Sulfonamide Allergy Rash/Hives Verified 01/21/17 15:27 Antibiotics) tamsulosin [From Flomax] Allergy Dyspnea Verified 01/21/17 15:27 Physical Exam Vitals: Vital Signs Temp Pulse Resp BP Pulse Ox 01/29/25 14:22 98.3 F 64 12 104/68 99 Intake and Output 01/28/25 01/29/25 01/29/25 22:59 06:59 14:59 Other: Weight 82.554 kg Sleep Note - Sleep Data ESS Total: 7 - Sleep Note Sleep Note: Temperature: 98.3 F Pulse Rate: 64 Respiratory Rate: 12 Blood Pressure: 104/68 SpO2: 99 Height: 5 ft 4.5 in Weight: 82.554 kg BMI: Neck Circumference: 14.5
== END ==
LOC: 3 N SLEEP 13:59
PROVIDERS: ATTEND Internal Medicine
DX: G47.33 Obstructive sleep apnea (adult) (pediatric) (principal); K21.9 Gastro-esophageal reflux disease without esophagitis; I48.91 Unspecified atrial fibrillation; E66.9 Obesity, unspecified; F17.200 Nicotine dependence, unspecified, uncomplicated; Z90.710 Acquired absence of both cervix and uterus; Z88.5 Allergy status to narcotic agent; Z88.2 Allergy status to sulfonamides; Z88.8 Allergy status to other drugs, medicaments and biological substances; Z68.30 Body mass index [BMI] 30.0-30.9, adult
CPT/HCPCS: 99211

== ENCOUNTER 2025-03-05 19:39 | Outpatient (CLI) | payer MEDICARE ==
--- NOTE | 2025-03-06 10:35 | P.PCN ---
Description of Procedure: POLYSOMNOGRAPHY REPORT PROCEDURE(S)/DATE(S): Polysomnography 03/05/2025 CLINICAL: Patient has been seen in the sleep center for evaluation of obstructive sleep apnea-hypopnea syndrome. Please see my consultation. Sleep study has been done for evaluation of patient breathing during the sleep. PROCEDURE: The standard montage for clinical polysomnography included the electroencephalogram, the electrooculogram, the mentalis surface electromyography and Lead II cardiography. The respiratory battery consisted of measurements of nasal/buccal air flow, pressure transducer measurements from nose, thoracic and/or abdominal effort and intercostal surface electromyography. Video monitoring has been done to check for any parasomnia events. Nocturnal oxyhemoglobin saturations were obtained by finger oximetry. Step-quigley titration with positive airway pressure was utilized to control the respiratory events, if necessary. RESULTS: During the diagnostic sleep study sleep efficiency was decreased to 70.5%. Latency to sleep onset was significantly prolonged to 46.5 min. Sleep architecture showed stage NI was slightly increased to 9.2%, Delta sleep was absent 0%, REM sleep was normal 26.8%. Respiratory channel showed 0 obstructive apneas, 0 mixed apneas, 0 central apneas, 0 hypopneas with lowest oxygen level 86%. Total apnea hypopnea index was 0. Oxygen level was below or equal 88% for 10.9 minutes. Heart rate was in the range between 60 and 66, average 64. EMG showed 0 periodic limb movements per hour. IMPRESSIONS: 1. No obstructive sleep apneas or hypopneas been documented during the sleep study. 2. No significant periodic limb movements have been documented. 3. Oxygen level was below normal for 10.9 minutes during the test Please see other impressions from consultation PLAN: 1. I will see patient for follow-up visit explained results of the test and recommendations. 2. Losing weight. 3. Sleep hygiene with regular time in bed for at least 7-1/2 hours. 4. No driving if feeling sleepiness. Thank you very much for allowing me to participate in the management of your patient. Sincerely, Pete Escobar MD, PhD, FAASM. Diplomat of [place] [employer], Sleep Medicine Board by [place] Counselor of [facility] [place] cc: Poncho Sainz MD
== END 2025-03-06 05:30 | disposition home or self-care (01) ==
LOC: 3 N SLEEP 19:39
PROVIDERS: ATTEND Internal Medicine
DX: G47.33 Obstructive sleep apnea (adult) (pediatric) (principal); F17.200 Nicotine dependence, unspecified, uncomplicated; Z88.5 Allergy status to narcotic agent; Z88.2 Allergy status to sulfonamides
CPT/HCPCS: 95810